=== PATIENT | female | born 1975 ===

== ENCOUNTER → 2018-07-31 21:23 | Outpatient (REF) | payer OTHER, SELFPAY ==
[2018-07-31 21:46] LABS: Alanine Aminotransferase 49 IU/L (9-52); Albumin 4.2 g/dL (3.5-5.0); Albumin Globulin Ratio 1.5 (1.0-2.8); Alkaline Phosphatase 45 U/L (38-126); Aspartate Aminotransferase 32 IU/L (14-36); Bilirubin Total 0.5 mg/dL (0.2-1.3); Blood Urea Nitrogen 12 mg/dL (7-17); Calcium 9.3 mg/dL (8.4-10.2); Carbon Dioxide 28 mmol/L (22-32); Chloride 102 mmol/L (98-107); Cholesterol 204 mg/dL (140-199); Estimated Glomerular Filt Rate > 60.0 mL/min (>60); Globulin 2.8 g/dL (1.7-4.1); Glucose 88 mg/dL (70-100); HDL Cholesterol 71 mg/dL (40-60); HEMOLYSIS < 15 (0-50); LDL Cholesterol Calculated 108 mg/dL (<100); Potassium 4.4 mmol/L (3.4-5.1); Sodium 140 mmol/L (137-145); Triglycerides 127 mg/dL (35-150)
[2018-07-31 21:47] LABS: Add Manual Diff / Slide Review NO; Eosinophils Percent Auto 6.3 % (2-4); Hematocrit 40.9 % (36-46); Hemoglobin 13.3 g/dL (12.0-16.0); Mean Corpuscular HGB Conc 32.6 % (30-36); Mean Corpuscular Hemoglobin 29.7 PG (26-34); Mean Corpuscular Volume 91.3 fL (80-100); Monocytes Percent Auto 8.3 % (3-14); Neutrophils Absolute Auto 5300 /uL (3000-5900); Neutrophils Percent Auto 55.4 % (50-75); Platelet Count 333 X10^3/uL (150-400); Red Blood Cell Count 4.48 X10^6/uL (4.0-5.2); Red Cell Distribution Width 13.1 % (11.6-14.8); White Blood Cell Count 9.6 X10^3/uL (4.5-11.0)
[2018-07-31 22:16] LABS: Thyroid Stimulating Hormone 2.11 uIU/mL (0.47-4.68)
[2018-07-31 22:42] LABS: Free T4, Direct Thyroxine 1.15 ng/dL (0.78-2.19)
[2018-08-02 14:47] LABS: Anti Thyroglobulin Antibody 55 IU/mL (< 2); Thyroid Peroxidase Antibodies 167 IU/mL (< 9)
== END ==
LOC: LAB 21:23
PROVIDERS: Visit Provider Family Medicine
DX: E03.9 Hypothyroidism, unspecified (principal); E06.3 Autoimmune thyroiditis; E78.00 Pure hypercholesterolemia, unspecified; J06.9 Acute upper respiratory infection, unspecified
CPT/HCPCS: 80053; 80061; 84439; 84443; 85025; 86376; 86800

== ENCOUNTER → 2018-10-30 21:13 | Outpatient (REF) | payer OTHER, SELFPAY ==
[2018-10-30 23:03] LABS: Appearance Urine UA TURBID; Bilirubin Urine UA NEGATIVE (NEGATIVE); Glucose Urine UA NEGATIVE (Negative); Ketones Urine UA TRACE (NEGATIVE); Leukocyte Esterase Urine UA 1+ (NEGATIVE); Nitrite Urine UA POSITIVE (Negative); Occult Blood Urine UA 3+ (Negative); Protein Urine UA 3+ (Negative); Specific Gravity Urine UA >=1.030 (1.000-1.035)
[2018-10-30 23:06] LABS: Color Urine UA BROWN
[2018-10-30 23:34] LABS: WBC Urine 10-30/HPF (0-5/HPF)
[2018-10-30 23:35] LABS: Bacteria Urine Many (>30); RBC Urine >100/HPF (0-5/HPF); Uric Acid Crystals Urine Moderate
== END ==
LOC: LAB 21:13
PROVIDERS: Visit Provider Family Medicine
DX: N39.0 Urinary tract infection, site not specified (principal)
CPT/HCPCS: 81001; 87077; 87086; 87186

== ENCOUNTER → 2019-01-24 21:28 | Outpatient (ROUT) | payer OTHER, SELFPAY ==
[2019-01-24 21:54] LABS: Add Manual Diff / Slide Review NO; Basophils Absolute Auto 100 /uL (0-100); Basophils Percent Auto 1.1 % (0-2); Eosinophils Absolute Auto 800 /uL (0-450); Eosinophils Percent Auto 9.6 % (2-4); Hematocrit 40.4 % (36-46); Hemoglobin 13.6 g/dL (12.0-16.0); Lymphocytes Absolute Auto 2700 /uL (1100-4500); Lymphocytes Percent Auto 33.2 % (25-40); Mean Corpuscular HGB Conc 33.7 % (30-36); Mean Corpuscular Volume 89.2 fL (80-100); Monocytes Absolute Auto 600 /uL (0-900); Monocytes Percent Auto 6.8 % (3-14); Neutrophils Absolute Auto 4100 /uL (1500-7000); Neutrophils Percent Auto 49.3 % (50-75); Platelet Count 341 X10^3/uL (150-400); Red Blood Cell Count 4.54 X10^6/uL (4.0-5.2); Red Cell Distribution Width 12.9 % (11.6-14.8); White Blood Cell Count 8.3 X10^3/uL (4.5-11.0)
[2019-01-24 22:07] LABS: Alanine Aminotransferase 29 IU/L (9-52); Albumin 4.3 g/dL (3.5-5.0); Albumin Globulin Ratio 1.4 (1.0-2.8); Alkaline Phosphatase 43 U/L (38-126); Aspartate Aminotransferase 28 IU/L (14-36); Bilirubin Total 0.5 mg/dL (0.2-1.3); Blood Urea Nitrogen 14 mg/dL (7-17); Calcium 9.9 mg/dL (8.4-10.2); Carbon Dioxide 32 mmol/L (22-32); Chloride 99 mmol/L (98-107); Estimated Glomerular Filt Rate > 60.0 mL/min (>60); Glucose 105 mg/dL (70-100); HEMOLYSIS < 15 (0-50); Potassium 4.8 mmol/L (3.4-5.1); Sodium 139 mmol/L (137-145); Total Protein 7.3 g/dL (6.3-8.2)
[2019-01-25 01:01] LABS: Free T3, Triiodothyronine Free 5.73 pg/mL (2.77-5.27); Free T4, Direct Thyroxine 2.03 ng/dL (0.78-2.19)
[2019-01-25 01:14] LABS: Thyroid Stimulating Hormone 0.02 uIU/mL (0.47-4.68)
[2019-01-26 16:27] LABS: Anti Thyroglobulin Antibody 152 IU/mL (< 2); Thyroid Peroxidase Antibodies 223 IU/mL (< 9)
== END ==
PROVIDERS: Visit Provider Family Medicine
DX: E03.9 Hypothyroidism, unspecified (principal); E06.3 Autoimmune thyroiditis; H81.13 Benign paroxysmal vertigo, bilateral
CPT/HCPCS: 36415; 80053; 84439; 84443; 84481; 85025; 86376; 86800